=== PATIENT | female | born 1970 | race Caucasian/White ===

== ENCOUNTER 2016-03-02 17:46 | Emergency (ER) | payer BC ==
[~2016-03-02] VITALS: Ht 170.2 cm; Wt 104.4 kg
[~2016-03-02 17:46] MED LIST: ABILIFY5 MG PO; ACAI BERRY500 MG PO; ADDERALL XR 1010 MG PO; ADDERALL XR 1515 MG PO; ADDERALL XR 2020 MG PO; ADDERALL XR 3030 MG PO; ADDERALL XR20 M1 PO; ADDERALL XR20 MG PO; ADDERALL10 MG PO; ADDERALL20 MG PO; ADDERALL30 MG PO; ALPRAZOLAM1 MG PO; AMOXICILLIN875 MG PO; AMPHETAMINE SAL10 MG PO; AMPHETAMINE SAL20 MG PO; ASPERDRINK81 MG PO; ASPIR-LOW81 MG PO; ASPIRIN81 M1 PO; ASPIRIN81 M2 PO; ATARAX,VISTARIL25 MG PO; ATARAX10 MG PO; ATENOLOL100 MG PO; Adderall XR PO; B COMPLETE1 EACH PO; B COMPLEX #11 EACH PO; BACKACHE EXTRA580 MG PO; BACKACHE RELIE580 MG PO; BAL B-501 EACH PO; BENADRYL25 MG PO; BENAZEPRIL HCL20 MG PO; BENICAR20 MG PO; BENTYL20 MG PO; CARISOPRODOL350 MG PO; CELEXA10 MG PO; CETIRIZINE HCL10 M2 PO; CIPRO500 MG PO; CIPROFLOXACIN500 M1 PO; CLARITIN10 MG PO; CLEOCIN150 MG PO; CLONAZEPAM0.5 MG PO; CLONAZEPAM1 MG PO; COUMADIN2 MG PO; COUMADIN3 MG PO; COUMADIN4 MG PO; CRANBERRY400 MG PO; D AMPHETAMINE PO; DESYREL100 MG PO; DIAZEPAM5 MG PO; DILAUDID4 MG PO; DOXYCYCLINE HY100 MG PO; Dulcolax PR; EFFEXOR XR75 MG PO; EMBREL PO; ENBREL25 MG/0.5 SC; ENBREL50 MG/1 ML SC; ENDOCET 5-3251 EACH PO; EPIPEN ADU0.3 MG/0.3 IM; ESTRACE0.5 MG PO; FENOFIBRATE160 M1 PO; FLEXERIL10 MG PO; FLONASE16 G1 BOTH NARES; FOLIC ACID1 MG PO; GEMFIBROZIL600 MG PO; GLUMETZA500 M1 PO; HYDROCHLOROTH12.5 M1 PO; HYDROCHLOROTH12.5 M3 PO; ILOTYCIN1 GM BOTH EYES; JANTOVEN2.5 MG PO; KEFLEX250 MG PO; KEFLEX500 MG PO; KENALOG,ARISTOC80 G1 TP; KEPPRA500 MG PO; KEPPRA750 MG PO; KLONOPIN0.5 M1 PO; KLONOPIN1 MG PO; KLOR-CON 1010 ME1 PO; LAMICTAL100 MG PO; LASIX20 MG PO; LEVAQUIN500 MG PO; LEVETIRACETAM500 MG PO; LEVOTHROID100 MCG PO; LEVOTHYROXINE88 MCG PO; LITHIUM CARBON300 M1 PO; LO-DOSE ASPIRIN81 M1 PO; LORAZEPAM1 MG PO; LYRICA75 MG PO; MACROBID100 MG PO; MAG-OXIDE400 MG PO; MAGNESIUM400 M1 PO; MELOXICAM7.5 MG PO; METHOTREXATE; METHOTREXATE2.5 MG PO; MICROZIDE12.5 MG PO; MS CONTIN,ORAMO15 M1 PO; Miralax, Glycolax PO; NORCO 5/3251 TABLET PO; OMEPRAZOLE40 M1 PO; OXYCODONE HCL10 MG PO; PANTOPRAZOLE SO40 MG PO; PEPCID20 MG PO; PERCOCET 5/31 TABLET PO; POTASSIUM PO; POTASSIUM99 MG PO; PRAVACHOL80 MG PO; PRAVASTATIN SOD40 MG PO; PRAVASTATIN SOD80 MG PO; PREDNISONE10 MG PO; PREDNISONE20 MG PO; PREVACID30 MG PO; PROAIR HFA8.5 GM IH; PROAMATINE5 M1 PO; PROMETHAZINE HC25 M1 PO; PROTONIX40 MG PO; PROZAC10 M1 PO; PROZAC20 M1 PO; RANITIDINE HCL150 MG PO; SUCRALFATE1 GM PO; SYNTHROID88 MCG PO; TENORMIN100 MG PO; TIROSINT100 MCG PO; TOPAMAX25 MG PO; TRAMADOL HCL50 MG PO; TRAZODONE HCL100 MG PO; TRAZODONE HCL150 MG PO; TYLENOL EXTRA500 MG PO; TYLENOL REGULA325 MG PO; TYLENOL WITH C1 EACH PO; Tylenol Regular Stre PO; ULTRAM50 MG PO; VANCOMYCIN1 GM/250 M IV; VENLAFAXINE HCL75 M3 PO; VENLAFAXINE HCL75 MG PO; VENLAFAXINE225 MG PO; VENTOLIN HFA18 GM IH; VICODIN 5-3001 EACH PO; VITAMIN D5000 INTUN PO; VITAMIN D5000 UNIT PO; VIVELLE-DOT0.05 MG TD; WARFARIN SODIUM2 MG PO; WARFARIN SODIUM3 MG PO; WELLBUTRIN SR150 MG PO; WELLBUTRIN XL300 MG PO; WELLBUTRIN75 MG PO; ZITHROMAX250 MG PO; ZOFRAN ODT4 MG PO; ZOFRAN4 MG PO; ZYRTEC10 M2 PO; ZYRTEC10 M3 PO; ZYVOX600 MG PO; Zofran PO; [UNRECOGNIZED DRUG - OTHER]; [UNRECOGNIZED DRUG - OTHER] PO; [UNRECOGNIZED DRUG - OTHER] PO; [UNRECOGNIZED DRUG - OTHER] PO; [UNRECOGNIZED DRUG - OTHER] PO; [UNRECOGNIZED DRUG - OTHER] PO; [UNRECOGNIZED DRUG - REMARK] PO; [UNRECOGNIZED DRUG - REMARK] PO; estrace cream; folic acid PO
[2016-03-02] MEDS ORDERED: NORCO 5/3251 TABLET PO (19:36)
[2016-03-02] MEDS ORDERED: FLEXERIL10 MG PO (19:36)
[2016-03-02] MEDS ORDERED: LIDODERM 5% P1 PATCH TD (21:19)
[2016-03-02 21:31] VITALS: BP 130/77
== END 2016-03-02 21:33 | disposition home or self-care (01) ==
LOC: EME 17:46 → RME 17:46
DX: S39.012A Strain of muscle, fascia and tendon of lower back, initial encounter (principal); M25.562 Pain in left knee; X50.9XXA Other and unspecified overexertion or strenuous movements or postures, initial encounter; Y99.0 Civilian activity done for income or pay; I10 Essential (primary) hypertension; E03.9 Hypothyroidism, unspecified; Z79.01 Long term (current) use of anticoagulants; Z86.711 Personal history of pulmonary embolism
CPT/HCPCS: 73564; 99281; 99284

== ENCOUNTER 2016-04-04 12:30 | Emergency (ER) | payer BC, OTHER ==
[~2016-04-04] VITALS: Ht 170.2 cm; Wt 106.5 kg
[~2016-04-04 12:30] MED LIST changes: +LIDODERM 5% P1 PATCH TD
[2016-04-04 14:43] VITALS: BP 135/85
== END 2016-04-04 14:44 | disposition home or self-care (01) ==
LOC: EME 12:30
DX: S93.601A Unspecified sprain of right foot, initial encounter (principal); S39.012A Strain of muscle, fascia and tendon of lower back, initial encounter; M62.838 Other muscle spasm; S90.31XA Contusion of right foot, initial encounter; W10.9XXA Fall (on) (from) unspecified stairs and steps, initial encounter; Z91.040 Latex allergy status; Z88.2 Allergy status to sulfonamides; Z88.6 Allergy status to analgesic agent
CPT/HCPCS: 72100; 72170; 73610; 73630; 99281; 99284

== ENCOUNTER 2016-06-14 22:19 | Observation (INO) | payer OTHER ==
[~2016-06-14] VITALS: Ht 170.2 cm; Wt 108.1 kg
[~2016-06-14 22:19] MED LIST changes: +LEVO-T88 MCG PO; +LIDOCAINE700 MG TD; +MORPHINE SULFAT15 MG PO; +POTASSIUM CHLO10 ME4 PO; +PRAVACHOL20 MG PO; +STOOL SOFTENER100 M1 PO; +ZANTAC150 MG PO; +ZOFRAN8 MG PO
[2016-06-14 23:44] LABS: CHLORIDE 106 mEq/L (99-109); POTASSIUM 4.2 mEq/L (3.7-5.4); SODIUM 141 mEq/L (136-147)
[2016-06-14 23:45] LABS: D-DIMER ELISA < 0.15 mg/L FEU (< 0.57)
[2016-06-14 23:46] LABS: GLUCOSE 114 mg/dL (70-99); HEMATOCRIT 39.6 % (36.0-46.0); MCH 28.4 PG (29.0-34.0); MCHC 33.1 G/DL (30.0-36.0); MCV 85.7 FL (83-99); MEAN PLAT.VOLUME 9.7 uM^3 (9.5-12.4); PLATELET COUNT 268 K/uL (156-360); RBC DIS.WIDTH-CV 12.3 % (11.8-14.6); RBC DIS.WIDTH-SD 38.1 % (39-53); RED BLOOD COUNT 4.62 M/uL (3.80-5.20); WHITE BLOOD COUNT 7.3 K/uL (4.1-10.2)
[2016-06-14 23:46] LABS: ADD MIUA? YES; BILIRUBIN NEGATIVE; BLOOD SMALL; COLOR YELLOW ((YELLOW)); GLUCOSE (STRIP) NEGATIVE; KETONES NEGATIVE; LEUKOCYTES TRACE; NITRITE NEGATIVE; PROTEIN (STRIP) NEGATIVE; SPECIFIC GRAVITY 1.017 (1.000-1.030); UROBILINOGEN 0.2 MG/DL (0.2-1.0)
[2016-06-14 23:48] LABS: ANION GAP 8 MEQ/L (2-14); TOTAL BILIRUBIN 0.2 mg/dL (0.0-1.0)
[2016-06-14 23:50] LABS: ALKALINE PHOSPHATASE 68 IU/L (3-129); GFR ESTIMATE (CALCULATED) > 59 mL/min/
[2016-06-14 23:51] LABS: UREA NITROGEN (BUN) 14 mg/dL (9-23)
[2016-06-14 23:53] LABS: TROP-I INTERPRETATION NEGATIVE; TROPONIN-I < 0.01 ng/mL (0.0-0.30)
[2016-06-14 23:55] LABS: BACTERIA NONE SEEN /HPF; EPITHELIAL CELLS RARE /HPF; MUCUS TRACE /LPF; RED BLOOD CELLS 0-5 /HPF (0-5); UCUL ADDED? NO; WHITE BLOOD CELLS 0-5 /HPF (0-5)
[2016-06-15 00:05] LABS: INTER. NORMALIZED RATIO 2.6; PROTHROMBIN TIME 27.7 (9.2-11.2); PTT 42.1 (25-32)
[2016-06-15 00:29] LABS: LIPASE 19 U/L (1.0-51.0)
[2016-06-15 02:40] LABS: BASE EXCESS 3.9 mEq/L (-3 to +3); BICARBONATE 29.7 mEq/L (22-26); CARBOXY HGB 1.5 % (0-5); COMMENTS - BLOOD GASES A+C+; DEVICE RA; METHEMOGLOBIN 0.9 % (0-1.5); PCO2 49 mm Hg (35-45); PO2 64 mm Hg (80-100); SITE RR; pH 7.39 (7.35-7.45)
[2016-06-15 03:58] VITALS: BP 110/63
[2016-06-15 09:03] VITALS: BP 101/58
[2016-06-15 09:11] LABS: TROP-I INTERPRETATION NEGATIVE; TROPONIN-I < 0.01 ng/mL (0.0-0.30)
[2016-06-15 11:21] VITALS: BP 103/64
[2016-06-15 14:10] LABS: TROP-I INTERPRETATION NEGATIVE; TROPONIN-I < 0.01 ng/mL (0.0-0.30)
[2016-06-15 16:07] LABS: INTER. NORMALIZED RATIO 2.4; PROTHROMBIN TIME 24.6 (9.2-11.2)
[2016-06-15] MEDS ORDERED: ADDERALL XR 3030 MG PO (17:14)
[2016-06-15] MEDS ORDERED: FLONASE16 G1 BOTH NARES (17:18)
[2016-06-15] MEDS ORDERED: TRAZODONE HCL150 MG PO (17:22)
[2016-06-15] MEDS ORDERED: LASIX20 MG PO (17:22)
[2016-06-15] MEDS ORDERED: K-DUR10 MEQ PO (17:23)
[2016-06-15] MEDS ORDERED: DUONEB 2.5-0.5 M3 ML AEROSOL (17:24)
[2016-06-15 17:50] VITALS: BP 120/73
== END 2016-06-15 20:07 | disposition home or self-care (01) ==
LOC: EME 22:19 → EDOF 06-15 02:23 → 3EAST 06-15 03:18
PROVIDERS: Emergency Medicine; Physician Assistant Medical; Student in an Organized Health Care Education/Training Program
DX: R09.02 Hypoxemia (principal); R07.89 Other chest pain; R42 Dizziness and giddiness; K44.9 Diaphragmatic hernia without obstruction or gangrene; K21.9 Gastro-esophageal reflux disease without esophagitis; G47.33 Obstructive sleep apnea (adult) (pediatric); Z91.19 Patient's noncompliance with other medical treatment and regimen; M79.7 Fibromyalgia; J45.909 Unspecified asthma, uncomplicated; G43.909 Migraine, unspecified, not intractable, without status migrainosus; E66.01 Morbid (severe) obesity due to excess calories; E78.5 Hyperlipidemia, unspecified; E03.9 Hypothyroidism, unspecified; E11.9 Type 2 diabetes mellitus without complications; Z86.73 Personal history of transient ischemic attack (TIA), and cerebral infarction without residual deficits; F31.9 Bipolar disorder, unspecified; Z86.711 Personal history of pulmonary embolism; Z86.718 Personal history of other venous thrombosis and embolism; F41.9 Anxiety disorder, unspecified; K59.00 Constipation, unspecified; Z68.38 Body mass index [BMI] 38.0-38.9, adult; D68.2 Hereditary deficiency of other clotting factors; I51.7 Cardiomegaly
CPT/HCPCS: 36600; 71010; 80053; 81003; 82803; 83690; 84484; 85027; 85379; 85610; 85730; 93005; 94640; 99202; 99281; 99285; G0378

== ENCOUNTER 2016-08-23 17:28 | Inpatient (IN) | payer OTHER ==
[~2016-08-23] VITALS: Ht 162.6 cm; Wt 98.6 kg
[~2016-08-23 17:28] MED LIST changes: +DUONEB 2.5-0.5 M3 ML AEROSOL; +K-DUR10 MEQ PO
[2016-08-23 19:31] LABS: HEMATOCRIT 40.9 % (36.0-46.0); MCH 27.6 PG (29.0-34.0); MCV 86.1 FL (83-99); MEAN PLAT.VOLUME 9.6 uM^3 (9.5-12.4); PLATELET COUNT 242 K/uL (156-360); RBC DIS.WIDTH-SD 43.8 % (39-53); RED BLOOD COUNT 4.75 M/uL (3.80-5.20); WHITE BLOOD COUNT 5.6 K/uL (4.1-10.2)
[2016-08-23 19:46] LABS: CHLORIDE 108 mEq/L (99-109); POTASSIUM 4.2 mEq/L (3.7-5.4); SODIUM 140 mEq/L (136-147)
[2016-08-23 19:47] LABS: GLUCOSE 106 mg/dL (70-99)
[2016-08-23 19:49] LABS: ANION GAP 9 MEQ/L (2-14)
[2016-08-23 19:51] LABS: GFR ESTIMATE (CALCULATED) > 59 mL/min/; SERUM ETHYL ALCOHOL < 10 mg/dL
[2016-08-23 19:52] LABS: UREA NITROGEN (BUN) 14 mg/dL (9-23)
[2016-08-23 20:26] LABS: INTER. NORMALIZED RATIO 4.5; PROTHROMBIN TIME 48.4 (9.2-11.2)
[2016-08-23 21:27] LABS: INTERNAL CONTROL VALID? YES
[2016-08-23 21:33] LABS: AMPHETAMINE PRESUMPTIVE POSITIVE (500 ng/mL); BARBITURATES NEGATIVE (200 ng/mL); BENZODIAZEPINES NEGATIVE (150 ng/mL); COCAINE NEGATIVE (150 ng/mL); INTERNAL CONTROLS VALID? YES; METHADONE NEGATIVE (200 ng/mL); METHAMPHETAMINE NEGATIVE (500 ng/mL); OPIATES (MORPHINE) NEGATIVE (100 ng/mL); OXYCODONE PRESUMPTIVE POSITIVE (100 ng/mL); PHENCYCLIDINE NEGATIVE (25 ng/mL); PROPOXYPHENE NEGATIVE (300 ng/mL); THC CANNABINOIDS NEGATIVE (50 ng/mL); TRICYCLIC ANTIDEPRESSANTS NEGATIVE (300 ng/mL)
[2016-08-23 22:21] VITALS: BP 110/65
[2016-08-23] MEDS ORDERED: HYDROCODON-ACE1 EAC9 PO (22:38)
[2016-08-23] MEDS ORDERED: GABAPENTIN300 MG PO (22:43)
[2016-08-23] MEDS ORDERED: MIRALAX17 GM PO (23:37)
[2016-08-24 07:31] VITALS: BP 111/59; BP 147/77
[2016-08-24 12:37] LABS: PROTHROMBIN TIME 42.2 (9.2-11.2)
[2016-08-24 16:35] VITALS: BP 129/79
[2016-08-25 08:00] VITALS: BP 97/57
[2016-08-25 12:58] LABS: INTER. NORMALIZED RATIO 2.3; PROTHROMBIN TIME 24.4 (9.2-11.2)
[2016-08-25 16:00] VITALS: BP 125/78
[2016-08-26 07:45] VITALS: BP 102/57
[2016-08-26 09:38] LABS: INTER. NORMALIZED RATIO 1.7; PROTHROMBIN TIME 17.4 (9.2-11.2)
[2016-08-26] MEDS ORDERED: VENLAFAXINE HCL75 M3 PO (10:46)
[2016-08-26 15:27] VITALS: BP 81/51
== END 2016-08-26 17:55 | disposition home or self-care (01) | DRG 885 ==
LOC: EME 17:28 → EDOF 20:38 → 1WEST 20:38
PROVIDERS: Emergency Medicine; Psychiatry & Neurology Psychiatry
DX: F33.1 Major depressive disorder, recurrent, moderate (principal); R45.851 Suicidal ideations; F90.0 Attention-deficit hyperactivity disorder, predominantly inattentive type; F41.1 Generalized anxiety disorder; E78.5 Hyperlipidemia, unspecified; I10 Essential (primary) hypertension; K21.9 Gastro-esophageal reflux disease without esophagitis; J45.909 Unspecified asthma, uncomplicated; G89.29 Other chronic pain; M79.7 Fibromyalgia; M35.3 Polymyalgia rheumatica; G47.30 Sleep apnea, unspecified; E03.9 Hypothyroidism, unspecified; M19.90 Unspecified osteoarthritis, unspecified site; F98.8 Other specified behavioral and emotional disorders with onset usually occurring in childhood and adolescence
CPT/HCPCS: 80048; 84703; 85027; 85610; 90839; 94640; 94640 76; 94760; 99202; 99281; 99285; G0480

== ENCOUNTER 2016-09-05 21:17 | Emergency (ER) | payer OTHER ==
[~2016-09-05] VITALS: Ht 162.6 cm; Wt 111.3 kg
[~2016-09-05 21:17] MED LIST changes: +GABAPENTIN300 MG PO; +HYDROCODON-ACE1 EAC9 PO; +MIRALAX17 GM PO
[2016-09-05 22:56] LABS: HEMATOCRIT 39.9 % (36.0-46.0); MCH 27.7 PG (29.0-34.0); MCHC 32.3 G/DL (30.0-36.0); MCV 85.6 FL (83-99); MEAN PLAT.VOLUME 10.3 uM^3 (9.5-12.4); PLATELET COUNT 282 K/uL (156-360); RBC DIS.WIDTH-CV 14.4 % (11.8-14.6); RBC DIS.WIDTH-SD 44.4 % (39-53); RED BLOOD COUNT 4.66 M/uL (3.80-5.20); WHITE BLOOD COUNT 7.3 K/uL (4.1-10.2)
[2016-09-05 23:13] LABS: CHLORIDE 102 mEq/L (99-109); POTASSIUM 4.5 mEq/L (3.7-5.4); SODIUM 138 mEq/L (136-147)
[2016-09-05 23:16] LABS: GLUCOSE 99 mg/dL (70-99)
[2016-09-05 23:17] LABS: ANION GAP 11 MEQ/L (2-14); INTER. NORMALIZED RATIO 2.2; PROTHROMBIN TIME 24.8 SEC (10.2-12.9)
[2016-09-05 23:18] LABS: TOTAL BILIRUBIN 0.2 mg/dL (0.0-1.0)
[2016-09-05 23:19] LABS: ALKALINE PHOSPHATASE 69 IU/L (3-129); GFR ESTIMATE (CALCULATED) > 59 mL/min/
[2016-09-05 23:20] LABS: PTT 43.7 SEC (25-37); UREA NITROGEN (BUN) 18 mg/dL (9-23)
[2016-09-06 00:48] VITALS: BP 123/83
== END 2016-09-06 00:50 | disposition home or self-care (01) ==
LOC: EME 21:17
PROVIDERS: Physician Assistant
DX: M54.12 Radiculopathy, cervical region (principal); W19.XXXA Unspecified fall, initial encounter; M79.7 Fibromyalgia; J45.909 Unspecified asthma, uncomplicated; I10 Essential (primary) hypertension; E78.5 Hyperlipidemia, unspecified; K21.9 Gastro-esophageal reflux disease without esophagitis; G47.30 Sleep apnea, unspecified; E03.9 Hypothyroidism, unspecified; R56.9 Unspecified convulsions; Z86.73 Personal history of transient ischemic attack (TIA), and cerebral infarction without residual deficits; Z79.01 Long term (current) use of anticoagulants
CPT/HCPCS: 70450; 72125; 80053; 85027; 85610; 85730; 99281; 99284; J1885

== ENCOUNTER 2016-09-19 12:38 | Day surgery (SDC) | payer OTHER | END 2016-09-19 14:47 | disposition home or self-care (01) | LOC: PAIN 12:38 → SDC 13:15 → PAIN 13:15 | DX: M47.816 Spondylosis without myelopathy or radiculopathy, lumbar region (principal); M54.5 Low back pain; G89.29 Other chronic pain; M51.36 Other intervertebral disc degeneration, lumbar region; I10 Essential (primary) hypertension; M79.7 Fibromyalgia; F41.8 Other specified anxiety disorders; E03.9 Hypothyroidism, unspecified; R73.03 Prediabetes; G47.30 Sleep apnea, unspecified; J45.909 Unspecified asthma, uncomplicated; Z86.711 Personal history of pulmonary embolism; Z79.01 Long term (current) use of anticoagulants; Z79.891 Long term (current) use of opiate analgesic; Z88.2 Allergy status to sulfonamides | CPT/HCPCS: 85610; 85730; J1030; J2250; J3010; S0020 ==

== ENCOUNTER 2016-09-26 09:23 | Day surgery (SDC) | payer OTHER ==
[~2016-09-26] VITALS: Ht 162.6 cm; Wt 109.3 kg
== END 2016-09-26 11:02 | disposition home or self-care (01) ==
LOC: PAIN 09:23 → SDC 10:00 → PAIN 10:00
DX: M47.816 Spondylosis without myelopathy or radiculopathy, lumbar region (principal); M54.5 Low back pain; G89.29 Other chronic pain; M51.36 Other intervertebral disc degeneration, lumbar region; F41.8 Other specified anxiety disorders; I10 Essential (primary) hypertension; E03.9 Hypothyroidism, unspecified; G47.30 Sleep apnea, unspecified; R73.03 Prediabetes; E66.9 Obesity, unspecified; Z68.41 Body mass index [BMI] 40.0-44.9, adult; Z86.14 Personal history of Methicillin resistant Staphylococcus aureus infection; Z86.711 Personal history of pulmonary embolism; Z79.01 Long term (current) use of anticoagulants; Z86.718 Personal history of other venous thrombosis and embolism
CPT/HCPCS: J1030; J2250; J3010; S0020

== ENCOUNTER 2016-10-28 01:26 | Emergency (ER) | payer OTHER ==
[~2016-10-28] VITALS: Ht 162.6 cm; Wt 116.9 kg
[2016-10-28 01:27] VITALS: BP 127/85
[2016-10-28 02:51] LABS: BASOPHIL COUNT 0.1 K/uL (0-0.1); EOSINOPHIL (%) 2.1 % (0-5); EOSINOPHIL COUNT 0.2 K/uL (0-0.3); HEMATOCRIT 37.9 % (36.0-46.0); IMMATURE GRANULOCYTE (%) 0.3 % (0.0-0.7); INSTRUMENT ABS NEUTROPHIL CT 4.2 K/uL; LYMPHOCYTE COUNT 2.5 K/uL (1.0-2.8); MCH 27.9 PG (29.0-34.0); MCHC 31.7 G/DL (30.0-36.0); MCV 88.1 FL (83-99); MEAN PLAT.VOLUME 9.9 uM^3 (9.5-12.4); MONOCYTE (%) 5.3 % (3-12); MONOCYTE COUNT 0.4 K/uL (0-0.8); NEUTROPHIL (%) 56.9 % (45-76); NEUTROPHIL COUNT 4.2 K/uL (1.8-6.4); PLATELET COUNT 239 K/uL (156-360); RBC DIS.WIDTH-CV 13.9 % (11.8-14.6); RBC DIS.WIDTH-SD 44.3 % (39-53); WHITE BLOOD COUNT 7.3 K/uL (4.1-10.2)
[2016-10-28 03:03] LABS: CHLORIDE 106 mEq/L (99-109); POTASSIUM 3.3 mEq/L (3.7-5.4); SODIUM 144 mEq/L (136-147)
[2016-10-28 03:04] LABS: GLUCOSE 133 mg/dL (70-99)
[2016-10-28 03:06] LABS: ANION GAP 13 MEQ/L (2-14)
[2016-10-28 03:08] LABS: GFR ESTIMATE (CALCULATED) > 59 mL/min/
[2016-10-28 03:09] LABS: UREA NITROGEN (BUN) 12 mg/dL (9-23)
[2016-10-28 03:11] LABS: URIC ACID 6.1 mg/dL (3.1-9.2)
[2016-10-28] MEDS ORDERED: DOXYCYCLINE HY100 MG PO (03:48)
== END 2016-10-28 04:36 | disposition home or self-care (01) ==
LOC: EME 01:26
PROVIDERS: Emergency Medicine
DX: L03.116 Cellulitis of left lower limb (principal); J45.909 Unspecified asthma, uncomplicated; E03.9 Hypothyroidism, unspecified; I10 Essential (primary) hypertension; Z86.711 Personal history of pulmonary embolism; Z79.01 Long term (current) use of anticoagulants; Z90.710 Acquired absence of both cervix and uterus
CPT/HCPCS: 73630; 80048; 84550; 85025; 99281; 99284

== ENCOUNTER 2016-11-03 00:24 | Emergency (ER) | payer OTHER ==
[~2016-11-03] VITALS: Ht 162.6 cm; Wt 113.6 kg
[2016-11-03 02:03] LABS: INTER. NORMALIZED RATIO 2.4; PROTHROMBIN TIME 27.2 SEC (10.2-12.9)
[2016-11-03 02:05] LABS: D-DIMER ELISA < 150.00 ng/mLDDU (<230)
[2016-11-03 02:27] VITALS: BP 127/84
== END 2016-11-03 02:40 | disposition home or self-care (01) ==
LOC: EME 00:24
PROVIDERS: Physician Assistant
DX: S70.02XA Contusion of left hip, initial encounter (principal); W19.XXXA Unspecified fall, initial encounter; M79.672 Pain in left foot; M16.12 Unilateral primary osteoarthritis, left hip; Z86.718 Personal history of other venous thrombosis and embolism; Z79.01 Long term (current) use of anticoagulants
CPT/HCPCS: 73502; 85379; 85610; 99281; 99284

== ENCOUNTER 2016-12-23 10:45 | Day surgery (SDC) | payer OTHER ==
[~2016-12-23] VITALS: Ht 162.6 cm; Wt 111.1 kg
[~2016-12-23 10:45] MED LIST changes: +AMOX TR-K CLV1 EAC4 PO; +BEVESPI AEROS10.7 GM IH; +COUMADIN5 MG PO; +ESTRACE42.5 GM VG; +LATUDA20 MG PO; +LOVENOX120 MG/0.8 SC
== END 2016-12-23 12:45 | disposition home or self-care (01) ==
LOC: PAIN 10:45 → SDC 11:30 → PAIN 12:45
DX: M47.816 Spondylosis without myelopathy or radiculopathy, lumbar region (principal); M54.5 Low back pain; G89.29 Other chronic pain; M51.36 Other intervertebral disc degeneration, lumbar region; I10 Essential (primary) hypertension; K21.9 Gastro-esophageal reflux disease without esophagitis; R73.03 Prediabetes; G47.30 Sleep apnea, unspecified; J45.909 Unspecified asthma, uncomplicated; E03.9 Hypothyroidism, unspecified; R00.0 Tachycardia, unspecified; M79.1 Myalgia; E66.9 Obesity, unspecified; Z68.41 Body mass index [BMI] 40.0-44.9, adult; Z79.891 Long term (current) use of opiate analgesic; Z86.711 Personal history of pulmonary embolism; Z79.01 Long term (current) use of anticoagulants
CPT/HCPCS: J1030; J2250; J3010; S0020

== ENCOUNTER 2016-12-30 23:59 | Emergency (ER) | payer OTHER ==
[~2016-12-30] VITALS: Ht 162.6 cm; Wt 111.4 kg
[~2016-12-30 23:59] MED LIST changes: +VITAMIN D32000 UNI1 PO
[2016-12-31 00:26] LABS: HEMATOCRIT 37.4 % (36.0-46.0); MCH 27.1 PG (29.0-34.0); MCHC 31.3 G/DL (30.0-36.0); MCV 86.8 FL (83-99); MEAN PLAT.VOLUME 9.6 uM^3 (9.5-12.4); PLATELET COUNT 356 K/uL (156-360); RBC DIS.WIDTH-CV 14.2 % (11.8-14.6); RBC DIS.WIDTH-SD 44.7 % (39-53); RED BLOOD COUNT 4.31 M/uL (3.80-5.20); WHITE BLOOD COUNT 10.8 K/uL (4.1-10.2)
[2016-12-31 00:35] LABS: CHLORIDE 106 mEq/L (99-109); POTASSIUM 3.8 mEq/L (3.7-5.4); SODIUM 143 mEq/L (136-147)
[2016-12-31 00:37] LABS: GLUCOSE 114 mg/dL (70-99)
[2016-12-31 00:38] LABS: ANION GAP 12 MEQ/L (2-14)
[2016-12-31 00:40] LABS: GFR ESTIMATE (CALCULATED) > 59 mL/min/
[2016-12-31 00:41] LABS: UREA NITROGEN (BUN) 20 mg/dL (9-23)
[2016-12-31 00:48] LABS: TROP-I INTERPRETATION NEGATIVE; TROPONIN-I < 0.01 ng/mL (0.0-0.30)
[2016-12-31 04:31] VITALS: BP 109/73
== END 2016-12-31 04:30 | disposition home or self-care (01) ==
LOC: EME 23:59
DX: R07.89 Other chest pain (principal); M54.5 Low back pain; R42 Dizziness and giddiness; R11.0 Nausea; T45.4X5A Adverse effect of iron and its compounds, initial encounter; J45.909 Unspecified asthma, uncomplicated; M79.7 Fibromyalgia; E78.5 Hyperlipidemia, unspecified; I10 Essential (primary) hypertension; F32.9 Major depressive disorder, single episode, unspecified; K21.9 Gastro-esophageal reflux disease without esophagitis; F41.9 Anxiety disorder, unspecified; E03.9 Hypothyroidism, unspecified; K22.70 Barrett's esophagus without dysplasia; G47.30 Sleep apnea, unspecified; R56.9 Unspecified convulsions; Z86.73 Personal history of transient ischemic attack (TIA), and cerebral infarction without residual deficits; Z86.711 Personal history of pulmonary embolism; Z91.040 Latex allergy status; Z88.2 Allergy status to sulfonamides; Z88.8 Allergy status to other drugs, medicaments and biological substances
CPT/HCPCS: 70450; 71020; 72131; 80048; 84484; 85027; 93005; 99281; 99285; J1200; J2060; J2765; J7030

== ENCOUNTER 2017-01-12 02:00 | Observation (INO) | payer OTHER ==
[~2017-01-12] VITALS: Ht 162.6 cm; Wt 119.1 kg
[2017-01-12 03:04] LABS: EOSINOPHIL (%) 1.7 % (0-5); EOSINOPHIL COUNT 0.1 K/uL (0-0.3); HEMATOCRIT 34.7 % (36.0-46.0); IMMATURE GRANULOCYTE (%) 0.2 % (0.0-0.7); INSTRUMENT ABS NEUTROPHIL CT 2.9 K/uL; LYMPHOCYTE COUNT 1.8 K/uL (1.0-2.8); MCHC 30.8 G/DL (30.0-36.0); MCV 87.4 FL (83-99); MEAN PLAT.VOLUME 10.2 uM^3 (9.5-12.4); MONOCYTE (%) 7.2 % (3-12); MONOCYTE COUNT 0.4 K/uL (0-0.8); NEUTROPHIL (%) 55.2 % (45-76); NEUTROPHIL COUNT 2.9 K/uL (1.8-6.4); PLATELET COUNT 265 K/uL (156-360); RBC DIS.WIDTH-CV 15.1 % (11.8-14.6); RBC DIS.WIDTH-SD 47.8 % (39-53); RED BLOOD COUNT 3.97 M/uL (3.80-5.20); WHITE BLOOD COUNT 5.2 K/uL (4.1-10.2)
[2017-01-12 03:15] LABS: CHLORIDE 109 mEq/L (99-109); POTASSIUM 3.2 mEq/L (3.7-5.4); SODIUM 142 mEq/L (136-147)
[2017-01-12 03:16] LABS: PTT 33.4 SEC (25-37)
[2017-01-12 03:17] LABS: GLUCOSE 125 mg/dL (70-99)
[2017-01-12 03:19] LABS: ANION GAP 8 MEQ/L (2-14); TOTAL BILIRUBIN 0.2 mg/dL (0.0-1.0)
[2017-01-12 03:21] LABS: ALKALINE PHOSPHATASE 70 IU/L (3-129); GFR ESTIMATE (CALCULATED) > 59 mL/min/
[2017-01-12 03:22] LABS: UREA NITROGEN (BUN) 17 mg/dL (9-23)
[2017-01-12 03:29] LABS: INTER. NORMALIZED RATIO 1.5; PROTHROMBIN TIME 16.9 SEC (10.2-12.9)
[2017-01-12 03:31] LABS: TROP-I INTERPRETATION NEGATIVE; TROPONIN-I < 0.01 ng/mL (0.0-0.30)
[2017-01-12 07:35] LABS: ADD MIUA? YES; BILIRUBIN NEGATIVE; BLOOD SMALL; COLOR YELLOW ((YELLOW)); GLUCOSE (STRIP) NEGATIVE; KETONES NEGATIVE; LEUKOCYTES MODERATE; NITRITE NEGATIVE; PROTEIN (STRIP) NEGATIVE; SPECIFIC GRAVITY 1.044 (1.000-1.030); UROBILINOGEN 0.2 MG/DL (0.2-1.0)
[2017-01-12 07:44] LABS: BACTERIA NONE SEEN /HPF; EPITHELIAL CELLS RARE /HPF; MUCUS TRACE /LPF; RED BLOOD CELLS 0-5 /HPF (0-5); UCUL ADDED? YES
[2017-01-12 08:02] LABS: HDL CHOLESTEROL 56 MG/DL (Desirable>=50); LDL CHOLESTEROL 130 mg/dL (Desirable<100); NON-HDL CHOLESTEROL 154 mg/dL (Desirable<160); TOTAL CHOLESTEROL 210 mg/dL (Desirable<200); TRIGLYCERIDES 120 MG/DL (Normal: <150)
[2017-01-12 08:45] VITALS: BP 169/85
[2017-01-12 10:19] LABS: TROP-I INTERPRETATION NEGATIVE; TROPONIN-I < 0.01 ng/mL (0.0-0.30)
[2017-01-12 13:00] VITALS: BP 122/70
[2017-01-12 15:46] LABS: TROP-I INTERPRETATION NEGATIVE; TROPONIN-I < 0.01 ng/mL (0.0-0.30)
[2017-01-12 16:07] VITALS: BP 123/60
[2017-01-12] MEDS ORDERED: LEVOTHYROXINE88 MCG PO (18:05)
[2017-01-12] MEDS ORDERED: COUMADIN3 MG PO (18:05)
[2017-01-12] MEDS ORDERED: PANTOPRAZOLE SO40 MG PO (18:05)
[2017-01-12] MEDS ORDERED: CEFTIN500 MG PO (18:05)
[2017-01-12] MEDS ORDERED: FLONASE16 G1 BOTH NARES (18:05)
[2017-01-12] MEDS ORDERED: BUTALB-APAP-CA1 EACH PO (18:05)
[2017-01-12] MEDS ORDERED: FOLIC ACID1 MG PO (18:05)
[2017-01-12] MEDS ORDERED: ANTIVERT25 MG PO (18:05)
[2017-01-13 07:32] LABS: Estimated Average Glucose 111 mg/dL (70-123); HEMOGLOBIN A1c (GLYCOHEMOGLOB) 5.5 % HGB (Below 5.7)
== END 2017-01-12 19:00 | disposition home or self-care (01) ==
LOC: EME 02:00 → EDOF 06:36 → ENRESERV 06:38 → EDOF 06:50 → ENRESERV 07:01 → 2EAST 08:35
PROVIDERS: Emergency Medicine; Physician Assistant
DX: R42 Dizziness and giddiness (principal); R07.89 Other chest pain; Z79.01 Long term (current) use of anticoagulants; R10.84 Generalized abdominal pain; D68.51 Activated protein C resistance; R51 Headache; E87.6 Hypokalemia; D64.9 Anemia, unspecified; K22.70 Barrett's esophagus without dysplasia; G47.33 Obstructive sleep apnea (adult) (pediatric); Z86.711 Personal history of pulmonary embolism; Z86.718 Personal history of other venous thrombosis and embolism; J45.909 Unspecified asthma, uncomplicated; M79.7 Fibromyalgia; E03.9 Hypothyroidism, unspecified; E11.9 Type 2 diabetes mellitus without complications; Z86.73 Personal history of transient ischemic attack (TIA), and cerebral infarction without residual deficits; F32.9 Major depressive disorder, single episode, unspecified; Z90.49 Acquired absence of other specified parts of digestive tract; Z90.710 Acquired absence of both cervix and uterus; Z82.49 Family history of ischemic heart disease and other diseases of the circulatory system; Z80.3 Family history of malignant neoplasm of breast; Z88.1 Allergy status to other antibiotic agents; Z91.040 Latex allergy status; Z88.2 Allergy status to sulfonamides; Z88.6 Allergy status to analgesic agent; Z88.5 Allergy status to narcotic agent; Z88.8 Allergy status to other drugs, medicaments and biological substances
CPT/HCPCS: 70450; 71020; 74177; 80053; 80061; 81003; 83036; 84484; 85025; 85610; 85730; 86850; 86900; 86901; 87086; 93005; 93880; 99281; 99285; C9113; G0378; J0696; J2060; J7030

== ENCOUNTER 2017-01-24 19:15 | Emergency (ER) | payer OTHER ==
[~2017-01-24] VITALS: Ht 162.6 cm; Wt 121.6 kg
[~2017-01-24 19:15] MED LIST changes: +ANTIVERT25 MG PO; +BUTALB-APAP-CA1 EACH PO; +CEFTIN500 MG PO
[2017-01-24 19:39] LABS: HEMATOCRIT 39.5 % (36.0-46.0); MCH 27.5 PG (29.0-34.0); MCHC 31.9 G/DL (30.0-36.0); MCV 86.1 FL (83-99); MEAN PLAT.VOLUME 9.9 uM^3 (9.5-12.4); PLATELET COUNT 289 K/uL (156-360); RBC DIS.WIDTH-CV 15.5 % (11.8-14.6); RBC DIS.WIDTH-SD 47.8 % (39-53); RED BLOOD COUNT 4.59 M/uL (3.80-5.20); WHITE BLOOD COUNT 6.6 K/uL (4.1-10.2)
[2017-01-24 19:49] LABS: CHLORIDE 105 mEq/L (99-109); POTASSIUM 3.4 mEq/L (3.7-5.4); SODIUM 142 mEq/L (136-147)
[2017-01-24 19:51] LABS: GLUCOSE 106 mg/dL (70-99)
[2017-01-24 19:52] LABS: ANION GAP 11 MEQ/L (2-14)
[2017-01-24 19:55] LABS: GFR ESTIMATE (CALCULATED) > 59 mL/min/
[2017-01-24 19:56] LABS: UREA NITROGEN (BUN) 13 mg/dL (9-23)
[2017-01-24 20:03] LABS: TROP-I INTERPRETATION NEGATIVE; TROPONIN-I < 0.01 ng/mL (0.0-0.30)
[2017-01-24 22:58] LABS: D-DIMER ELISA < 150.00 ng/mLDDU (<230)
[2017-01-25 00:22] LABS: TROP-I INTERPRETATION NEGATIVE; TROPONIN-I < 0.01 ng/mL (0.0-0.30)
[2017-01-25 00:47] VITALS: BP 127/91
== END 2017-01-25 00:49 | disposition home or self-care (01) ==
LOC: EME 19:15
PROVIDERS: Physician Assistant Medical
DX: R07.9 Chest pain, unspecified (principal); D64.9 Anemia, unspecified; E78.5 Hyperlipidemia, unspecified; I10 Essential (primary) hypertension; E03.9 Hypothyroidism, unspecified; Z86.711 Personal history of pulmonary embolism; J45.909 Unspecified asthma, uncomplicated; F32.9 Major depressive disorder, single episode, unspecified; M79.7 Fibromyalgia; Z79.01 Long term (current) use of anticoagulants; F41.9 Anxiety disorder, unspecified; K21.9 Gastro-esophageal reflux disease without esophagitis; G47.30 Sleep apnea, unspecified; K22.70 Barrett's esophagus without dysplasia; K58.0 Irritable bowel syndrome with diarrhea; R56.9 Unspecified convulsions; Z86.73 Personal history of transient ischemic attack (TIA), and cerebral infarction without residual deficits; Z88.2 Allergy status to sulfonamides; Z88.5 Allergy status to narcotic agent; Z88.1 Allergy status to other antibiotic agents; Z91.040 Latex allergy status
CPT/HCPCS: 71020; 80048; 84484; 85027; 85379; 93005; 99281; 99285; J1885

== ENCOUNTER 2017-03-09 00:11 | Emergency (ER) | payer OTHER ==
[~2017-03-09] VITALS: Ht 162.6 cm; Wt 118.7 kg
[~2017-03-09 00:11] MED LIST changes: +K-DUR20 MEQ PO; +LASIX40 MG PO
[2017-03-09 00:46] LABS: HEMATOCRIT 42.5 % (36.0-46.0); HEMOGLOBIN 13.9 G/DL (11.9-15.5); MCH 28.4 PG (29.0-34.0); MCHC 32.7 G/DL (30.0-36.0); MCV 86.7 FL (83-99); PLATELET COUNT 255 K/uL (156-360); RBC DIS.WIDTH-CV 15.9 % (11.8-14.6); RBC DIS.WIDTH-SD 50.9 % (39-53); WHITE BLOOD COUNT 5.6 K/uL (4.1-10.2)
[2017-03-09 00:59] LABS: CHLORIDE 105 mEq/L (99-109); SODIUM 139 mEq/L (136-147)
[2017-03-09 01:01] LABS: GLUCOSE 93 mg/dL (70-99)
[2017-03-09 01:04] LABS: CREATININE 0.9 mg/dL (0.6-1.3); GFR ESTIMATE (CALCULATED) > 59 mL/min/
[2017-03-09 01:05] LABS: UREA NITROGEN (BUN) 13 mg/dL (9-23)
[2017-03-09 02:00] LABS: INTER. NORMALIZED RATIO 4.3
[2017-03-09 03:27] VITALS: BP 122/90
== END 2017-03-09 03:28 | disposition home or self-care (01) ==
LOC: EME 00:11
DX: M79.81 Nontraumatic hematoma of soft tissue (principal); R79.1 Abnormal coagulation profile; Z79.01 Long term (current) use of anticoagulants; M79.7 Fibromyalgia; K21.9 Gastro-esophageal reflux disease without esophagitis; I10 Essential (primary) hypertension; F41.9 Anxiety disorder, unspecified; E78.5 Hyperlipidemia, unspecified; F32.9 Major depressive disorder, single episode, unspecified; J45.909 Unspecified asthma, uncomplicated; Z86.73 Personal history of transient ischemic attack (TIA), and cerebral infarction without residual deficits; M19.90 Unspecified osteoarthritis, unspecified site; K58.9 Irritable bowel syndrome, unspecified; E03.9 Hypothyroidism, unspecified; Z88.1 Allergy status to other antibiotic agents; Z88.2 Allergy status to sulfonamides; Z88.5 Allergy status to narcotic agent; Z86.718 Personal history of other venous thrombosis and embolism; Z91.040 Latex allergy status; Z88.8 Allergy status to other drugs, medicaments and biological substances
CPT/HCPCS: 80048; 85027; 85610; 86850; 86900; 86901; 99281; 99285

== ENCOUNTER 2017-03-14 21:15 | Inpatient (IN) | payer OTHER ==
[~2017-03-14] VITALS: Ht 162.6 cm; Wt 116.4 kg
[~2017-03-14 21:15] MED LIST changes: -K-DUR20 MEQ PO
[2017-03-14 22:35] LABS: HEMATOCRIT 40.4 % (36.0-46.0); HEMOGLOBIN 13.1 G/DL (11.9-15.5); MCH 28.1 PG (29.0-34.0); MCHC 32.4 G/DL (30.0-36.0); MCV 86.7 FL (83-99); PLATELET COUNT 234 K/uL (156-360); RBC DIS.WIDTH-CV 15.9 % (11.8-14.6); RBC DIS.WIDTH-SD 49.4 % (39-53); RED BLOOD COUNT 4.66 M/uL (3.80-5.20); WHITE BLOOD COUNT 5.6 K/uL (4.1-10.2)
[2017-03-14 22:44] LABS: PTT 83.1 SEC (25-37)
[2017-03-14 22:47] LABS: CHLORIDE 105 mEq/L (99-109); SODIUM 140 mEq/L (136-147)
[2017-03-14 22:49] LABS: GLUCOSE 125 mg/dL (70-99)
[2017-03-14 22:53] LABS: CREATININE 0.8 mg/dL (0.6-1.3); GFR ESTIMATE (CALCULATED) > 59 mL/min/
[2017-03-14 22:54] LABS: UREA NITROGEN (BUN) 10 mg/dL (9-23)
[2017-03-14 22:58] LABS: INTER. NORMALIZED RATIO 8.7
[2017-03-14] MEDS ORDERED: COUMADIN3 MG PO (23:26)
[2017-03-14] MEDS ORDERED: MECLIZINE HCL25 MG PO (23:28)
[2017-03-14] MEDS ORDERED: FLONASE16 G1 BOTH NARES (23:28)
[2017-03-14] MEDS ORDERED: PROTONIX40 MG PO (23:29)
[2017-03-15 02:41] VITALS: BP 109/62
[2017-03-15 04:00] VITALS: BP 108/55
[2017-03-15 08:37] VITALS: BP 103/64
[2017-03-15 12:00] VITALS: BP 109/66
[2017-03-15 14:35] LABS: INTER. NORMALIZED RATIO 4.3
[2017-03-15 16:00] VITALS: BP 102/67
[2017-03-15 21:37] VITALS: BP 114/55
[2017-03-16 00:18] VITALS: BP 104/54
[2017-03-16 04:00] VITALS: BP 87/52
[2017-03-16 06:30] LABS: BASOPHIL (%) 1.4 % (0-1); BASOPHIL COUNT 0.1 K/uL (0-0.1); EOSINOPHIL (%) 4.3 % (0-5); EOSINOPHIL COUNT 0.2 K/uL (0-0.3); HEMATOCRIT 37.7 % (36.0-46.0); HEMOGLOBIN 11.7 G/DL (11.9-15.5); IMMATURE GRANULOCYTE (%) 0.2 % (0.0-0.7); LYMPHOCYTE (%) 38.2 % (15-42); LYMPHOCYTE COUNT 1.9 K/uL (1.0-2.8); MCH 27.5 PG (29.0-34.0); MCV 88.7 FL (83-99); MONOCYTE (%) 7.7 % (3-12); MONOCYTE COUNT 0.4 K/uL (0-0.8); NEUTROPHIL (%) 48.2 % (45-76); NEUTROPHIL COUNT 2.4 K/uL (1.8-6.4); PLATELET COUNT 215 K/uL (156-360); RBC DIS.WIDTH-CV 15.7 % (11.8-14.6); RBC DIS.WIDTH-SD 50.9 % (39-53); RED BLOOD COUNT 4.25 M/uL (3.80-5.20); WHITE BLOOD COUNT 4.9 K/uL (4.1-10.2)
[2017-03-16 06:49] LABS: CHLORIDE 107 MEQ/L (99-109); CREATININE 0.8 MG/DL (0.6-1.3); GFR ESTIMATE (CALCULATED) > 59 mL/min/; GLUCOSE 115 mg/dL (70-99); POTASSIUM 3.9 MEQ/L (3.7-5.4); SODIUM 144 MEQ/L (136-147); UREA NITROGEN (BUN) 12 mg/dL (9-23)
[2017-03-16 07:09] LABS: INTER. NORMALIZED RATIO 2.2; PTT 40.5 SEC (25-37)
[2017-03-16 07:34] VITALS: BP 94/57
[2017-03-16 11:39] VITALS: BP 116/69
[2017-03-16 16:11] VITALS: BP 116/69
[2017-03-16 19:54] VITALS: BP 116/62
[2017-03-17] VITALS: BP 102/57
[2017-03-17 06:35] LABS: BASOPHIL (%) 0.9 % (0-1); BASOPHIL COUNT 0.1 K/uL (0-0.1); EOSINOPHIL (%) 3.4 % (0-5); EOSINOPHIL COUNT 0.2 K/uL (0-0.3); HEMATOCRIT 39.4 % (36.0-46.0); HEMOGLOBIN 12.4 G/DL (11.9-15.5); IMMATURE GRANULOCYTE (%) 0.2 % (0.0-0.7); LYMPHOCYTE (%) 31.1 % (15-42); LYMPHOCYTE COUNT 1.7 K/uL (1.0-2.8); MCH 27.8 PG (29.0-34.0); MCHC 31.5 G/DL (30.0-36.0); MCV 88.3 FL (83-99); MONOCYTE (%) 7.3 % (3-12); MONOCYTE COUNT 0.4 K/uL (0-0.8); NEUTROPHIL (%) 57.1 % (45-76); NEUTROPHIL COUNT 3.2 K/uL (1.8-6.4); PLATELET COUNT 210 K/uL (156-360); RBC DIS.WIDTH-CV 15.5 % (11.8-14.6); RBC DIS.WIDTH-SD 50.1 % (39-53); RED BLOOD COUNT 4.46 M/uL (3.80-5.20); WHITE BLOOD COUNT 5.6 K/uL (4.1-10.2)
[2017-03-17 06:50] LABS: INTER. NORMALIZED RATIO 1.7
[2017-03-17 07:07] LABS: CHLORIDE 106 MEQ/L (99-109); CREATININE 0.8 MG/DL (0.6-1.3); GFR ESTIMATE (CALCULATED) > 59 mL/min/; GLUCOSE 96 mg/dL (70-99); SODIUM 140 MEQ/L (136-147); UREA NITROGEN (BUN) 11 mg/dL (9-23)
[2017-03-17 07:48] VITALS: BP 104/69
[2017-03-17] MEDS ORDERED: JANTOVEN3 MG PO (11:20)
[2017-03-17 16:29] VITALS: BP 115/58
== END 2017-03-17 18:05 | disposition home or self-care (01) | DRG 948 ==
LOC: EME 21:15 → 5SOUTH 03-15 00:20 → EDOF 03-15 00:20 → ENRESERV 03-15 00:21 → 5SOUTH 03-15 02:03
PROVIDERS: Emergency Medicine; Physician Assistant Medical; Student in an Organized Health Care Education/Training Program
DX: R79.1 Abnormal coagulation profile (principal); R04.0 Epistaxis; M79.81 Nontraumatic hematoma of soft tissue; D68.51 Activated protein C resistance; R33.9 Retention of urine, unspecified; E03.9 Hypothyroidism, unspecified; E11.9 Type 2 diabetes mellitus without complications; E78.5 Hyperlipidemia, unspecified; F31.9 Bipolar disorder, unspecified; F41.1 Generalized anxiety disorder; G47.33 Obstructive sleep apnea (adult) (pediatric); I10 Essential (primary) hypertension; J44.9 Chronic obstructive pulmonary disease, unspecified; K21.9 Gastro-esophageal reflux disease without esophagitis; M79.7 Fibromyalgia; G43.909 Migraine, unspecified, not intractable, without status migrainosus; G89.29 Other chronic pain; K44.9 Diaphragmatic hernia without obstruction or gangrene; E66.01 Morbid (severe) obesity due to excess calories; Z68.41 Body mass index [BMI] 40.0-44.9, adult; Z79.01 Long term (current) use of anticoagulants; Z86.711 Personal history of pulmonary embolism; Z86.718 Personal history of other venous thrombosis and embolism; Z86.73 Personal history of transient ischemic attack (TIA), and cerebral infarction without residual deficits; Z91.19 Patient's noncompliance with other medical treatment and regimen; Z88.2 Allergy status to sulfonamides; Z91.040 Latex allergy status; Z88.1 Allergy status to other antibiotic agents; Z88.5 Allergy status to narcotic agent
CPT/HCPCS: 36415; 70450; 80048; 85025; 85027; 85610; 85730; 94799; 99281; 99285; J7030

== ENCOUNTER 2017-03-19 22:32 | Emergency (ER) | payer OTHER ==
[~2017-03-19] VITALS: Ht 162.6 cm; Wt 115.0 kg
[~2017-03-19 22:32] MED LIST changes: +JANTOVEN3 MG PO; +MECLIZINE HCL25 MG PO
[2017-03-20 00:21] LABS: HEMATOCRIT 40.5 % (36.0-46.0); HEMOGLOBIN 13.5 G/DL (11.9-15.5); MCH 28.5 PG (29.0-34.0); MCHC 33.3 G/DL (30.0-36.0); MCV 85.4 FL (83-99); PLATELET COUNT 250 K/uL (156-360); RBC DIS.WIDTH-CV 15.8 % (11.8-14.6); RBC DIS.WIDTH-SD 49.7 % (39-53); RED BLOOD COUNT 4.74 M/uL (3.80-5.20); WHITE BLOOD COUNT 6.1 K/uL (4.1-10.2)
[2017-03-20 00:35] LABS: INTER. NORMALIZED RATIO 1.5
[2017-03-20 00:38] LABS: PTT 34.2 SEC (25-37)
[2017-03-20 00:39] LABS: CHLORIDE 106 mEq/L (99-109); POTASSIUM 3.9 mEq/L (3.7-5.4); SODIUM 143 mEq/L (136-147)
[2017-03-20 00:41] LABS: GLUCOSE 113 mg/dL (70-99); TOTAL PROTEIN 7.1 g/dL (6.4-8.3)
[2017-03-20 00:43] LABS: TOTAL BILIRUBIN 0.3 mg/dL (0.0-1.0)
[2017-03-20 00:45] LABS: ALKALINE PHOSPHATASE 69 IU/L (3-129); CREATININE 0.9 mg/dL (0.6-1.3); GFR ESTIMATE (CALCULATED) > 59 mL/min/
[2017-03-20 00:46] LABS: UREA NITROGEN (BUN) 17 mg/dL (9-23)
[2017-03-20 00:47] LABS: AST (GOT) 12 IU/L (2-34)
[2017-03-20 00:48] LABS: ALT (GPT) 11 IU/L (3-49)
[2017-03-20 01:14] LABS: TROP-I INTERPRETATION NEGATIVE; TROPONIN-I < 0.01 ng/mL (0.0-0.30)
[2017-03-20] MEDS ORDERED: FLEXERIL10 MG PO (01:18)
[2017-03-20 01:43] VITALS: BP 121/82
== END 2017-03-20 01:46 | disposition home or self-care (01) ==
LOC: EME 22:32
PROVIDERS: Physician Assistant
DX: M79.605 Pain in left leg (principal); R79.1 Abnormal coagulation profile; Z86.718 Personal history of other venous thrombosis and embolism; Z79.01 Long term (current) use of anticoagulants; I10 Essential (primary) hypertension; J45.909 Unspecified asthma, uncomplicated; K21.9 Gastro-esophageal reflux disease without esophagitis; E78.5 Hyperlipidemia, unspecified; E03.9 Hypothyroidism, unspecified; M79.7 Fibromyalgia; F32.9 Major depressive disorder, single episode, unspecified; Z86.73 Personal history of transient ischemic attack (TIA), and cerebral infarction without residual deficits; F41.9 Anxiety disorder, unspecified; R56.9 Unspecified convulsions; K22.70 Barrett's esophagus without dysplasia; K58.0 Irritable bowel syndrome with diarrhea; Z88.5 Allergy status to narcotic agent; Z88.2 Allergy status to sulfonamides; Z88.1 Allergy status to other antibiotic agents; Z91.040 Latex allergy status
CPT/HCPCS: 80053; 84484; 85027; 85610; 85730; 93005; 93971; 99281; 99284

== ENCOUNTER 2017-03-30 19:10 | Emergency (ER) | payer OTHER ==
[~2017-03-30] VITALS: Ht 162.6 cm; Wt 117.4 kg
[2017-03-30 21:42] LABS: HEMATOCRIT 41.5 % (36.0-46.0); HEMOGLOBIN 13.8 G/DL (11.9-15.5); MCH 28.6 PG (29.0-34.0); MCHC 33.3 G/DL (30.0-36.0); MCV 85.9 FL (83-99); PLATELET COUNT 289 K/uL (156-360); RBC DIS.WIDTH-CV 15.7 % (11.8-14.6); RBC DIS.WIDTH-SD 49.6 % (39-53); RED BLOOD COUNT 4.83 M/uL (3.80-5.20)
[2017-03-30 21:53] LABS: INTER. NORMALIZED RATIO 6.7
[2017-03-30 22:05] LABS: CHLORIDE 103 MEQ/L (99-109); CREATININE 0.7 MG/DL (0.6-1.3); GFR ESTIMATE (CALCULATED) > 59 mL/min/; GLUCOSE 137 mg/dL (70-99); SODIUM 138 MEQ/L (136-147); UREA NITROGEN (BUN) 14 mg/dL (9-23)
[2017-03-30] MEDS ORDERED: PERCOCET 5/31 TABLET PO (23:44)
[2017-03-31 00:40] VITALS: BP 128/95
== END 2017-03-31 00:40 | disposition home or self-care (01) ==
LOC: EME 19:10
PROVIDERS: Physician Assistant
DX: M79.604 Pain in right leg (principal); M79.671 Pain in right foot; R79.1 Abnormal coagulation profile; Z79.01 Long term (current) use of anticoagulants; Z86.711 Personal history of pulmonary embolism; M77.31 Calcaneal spur, right foot
CPT/HCPCS: 73610; 80048; 85027; 85610; 93971; 99281; 99284

== ENCOUNTER 2017-07-04 11:54 | Day surgery (SDC) | payer OTHER ==
[~2017-07-04] VITALS: Ht 162.6 cm; Wt 109.8 kg
[~2017-07-04 11:54] MED LIST changes: +COLACE100 MG PO; +ELIQUIS2.5 MG PO; +INDERAL60 MG PO
[2017-07-04 12:42] VITALS: BP 115/75
[2017-07-04 12:53] LABS: BASOPHIL COUNT 0.1 K/uL (0-0.1); EOSINOPHIL (%) 3.6 % (0-5); EOSINOPHIL COUNT 0.2 K/uL (0-0.3); HEMATOCRIT 41.6 % (36.0-46.0); HEMOGLOBIN 13.7 G/DL (11.9-15.5); IMMATURE GRANULOCYTE (%) 0.4 % (0.0-0.7); LYMPHOCYTE (%) 34.4 % (15-42); LYMPHOCYTE COUNT 1.8 K/uL (1.0-2.8); MCHC 32.9 G/DL (30.0-36.0); MONOCYTE (%) 6.7 % (3-12); MONOCYTE COUNT 0.4 K/uL (0-0.8); NEUTROPHIL (%) 53.9 % (45-76); NEUTROPHIL COUNT 2.8 K/uL (1.8-6.4); PLATELET COUNT 229 K/uL (156-360); RBC DIS.WIDTH-CV 12.4 % (11.8-14.6); RBC DIS.WIDTH-SD 41.1 % (39-53); RED BLOOD COUNT 4.57 M/uL (3.80-5.20); WHITE BLOOD COUNT 5.2 K/uL (4.1-10.2)
[2017-07-04 13:15] LABS: C-REACTIVE PROTEIN 16.1 MG/L (0-10); CHLORIDE 109 MEQ/L (99-109); CREATININE 0.8 MG/DL (0.6-1.3); GFR ESTIMATE (CALCULATED) > 59 mL/min/; GLUCOSE 96 mg/dL (70-99); POTASSIUM 4.4 MEQ/L (3.7-5.4); SODIUM 141 MEQ/L (136-147); UREA NITROGEN (BUN) 10 mg/dL (9-23)
[2017-07-04 13:54] LABS: ERTH.SED.RATE 28 MM/HR (0-20)
[2017-07-04] MEDS ORDERED: ENDOCET 5-3251 EACH PO (19:32)
[2017-07-04 20:10] VITALS: BP 153/88
[2017-07-04 21:12] VITALS: BP 112/76
== END 2017-07-04 21:15 | disposition home or self-care (01) ==
LOC: SDC 11:54
PROVIDERS: Neurological Surgery
DX: T85.890A Other specified complication of nervous system prosthetic devices, implants and grafts, initial encounter (principal); Y75.3 Surgical instruments, materials and neurological devices (including sutures) associated with adverse incidents; G89.29 Other chronic pain; I10 Essential (primary) hypertension; E66.01 Morbid (severe) obesity due to excess calories; Z68.41 Body mass index [BMI] 40.0-44.9, adult; M79.7 Fibromyalgia; Z79.01 Long term (current) use of anticoagulants; G47.30 Sleep apnea, unspecified; J45.909 Unspecified asthma, uncomplicated; Z86.73 Personal history of transient ischemic attack (TIA), and cerebral infarction without residual deficits; E03.9 Hypothyroidism, unspecified
CPT/HCPCS: 72040; 76000; 80048; 85025; 85651; 86140; 87070; 87075; 87076; 87205; 87641; 88300; 88302; J0690; J1100; J1200; J2250; J2405; J3010; J3370; S0020

== ENCOUNTER 2017-08-03 10:19 | Emergency (ER) | payer OTHER ==
[~2017-08-03] VITALS: Ht 167.6 cm; Wt 113.6 kg
[2017-08-03] MEDS ORDERED: LOTRIMIN AF24 GM TP (14:25)
[2017-08-03] MEDS ORDERED: BENADRYL25 MG PO (14:25)
[2017-08-03 15:04] VITALS: BP 111/78
== END 2017-08-03 15:05 | disposition home or self-care (01) ==
LOC: EME 10:19
PROVIDERS: Emergency Medicine
DX: M54.10 Radiculopathy, site unspecified (principal); R21 Rash and other nonspecific skin eruption; B36.9 Superficial mycosis, unspecified; M54.2 Cervicalgia; M25.511 Pain in right shoulder; M25.78 Osteophyte, vertebrae; E03.9 Hypothyroidism, unspecified; J45.909 Unspecified asthma, uncomplicated; Z86.711 Personal history of pulmonary embolism; Z86.73 Personal history of transient ischemic attack (TIA), and cerebral infarction without residual deficits; Z79.01 Long term (current) use of anticoagulants
CPT/HCPCS: 72040; 73030; 82948; 99281; 99283

== ENCOUNTER → 2017-09-09 | Outpatient (CLI) | payer OTHER ==
[~2017-09-09] MED LIST changes: +BACLOFEN10 MG PO; +GLUCOSAMINE CO1 EAC3 PO; +LOTRIMIN AF24 GM TP; +PLAQUENIL200 MG PO; +POTASSIUM CHLO10 MEQ PO; +TROKENDI XR100 MG PO; +TROKENDI XR25 MG PO; +VITAMIN B-2100 MG PO
== END | disposition home or self-care (01) ==
LOC: AMB 08:30
PROC: 03BS3ZX Excision of Right Temporal Artery, Percutaneous Approach, Diagnostic (ICD-10-PCS; principal; 2017-09-09)
DX: H54.7 Unspecified visual loss (principal); Z79.01 Long term (current) use of anticoagulants
CPT/HCPCS: 88305; 88313